=== PATIENT | female | born 1965 | race Two or more races ===

== ENCOUNTER 2016-06-16 22:35 | Emergency (ER) | payer MEDICAID ==
[~2016-06-16] VITALS: Ht 157.5 cm; Wt 71.7 kg
--- NOTE | 2016-06-16 22:40 | NUR ---
PT AMBULATORY TO ER BED 12. C/O SOB X 40 MINS RESIN MIXER. PT APPEARS ANXIOUS. GOWNED AND PLACED ON MONITOR. VSS. DENIES CHEST PAIN. AWAITING MD GUY.
--- NOTE | 2016-06-16 23:02 | NUR ---
DR MORELAND AT BEDSIDE FOR EVAL.
[2016-06-16] MEDS ORDERED: ASPIRIN 81 MG TAB.CHEW ONE (23:03)
--- NOTE | 2016-06-16 23:14 | NUR ---
BLOCK CABLEMAN AT BEDSIDE FOR BLOOD DRAW.
[2016-06-16 23:29] LABS: BASOPHILS % (AUTO) 0.7 % (0.0-2.0); EOSINOPHILS # (AUTO) 0.3 /CMM (0.0-0.7); HEMATOCRIT 37 % (33-45); HEMOGLOBIN 12.1 g/dL (11.5-14.8); LYMPHOCYTES # (AUTO) 2.5 /CMM (0.8-4.8); LYMPHOCYTES % (AUTO) 35.2 % (20.0-44.0); MEAN CORPUSCULAR HEMOGLOBIN 28 PG (26.0-33.0); MEAN CORPUSCULAR HGB CONC 33 g/dl (31.0-36.0); MEAN CORPUSCULAR VOLUME 83 fL (82-100); MONOCYTES # (AUTO) 0.4 /CMM (0.1-1.30); MONOCYTES % (AUTO) 6.2 % (2.0-12.0); NEUTROPHILS # (AUTO) 3.9 /CMM (1.8-8.9); NEUTROPHILS % (AUTO) 53.9 % (43.0-81.0); PLATELET COUNT (AUTO) 259 /CMM (150-450); RDW COEFFICIENT OF VARIATION 14.3 (11.5-15.0); RED BLOOD CELL COUNT(AUTO) 4.41 MIL/uL (4.0-5.2); WHITE BLOOD COUNT (AUTO) 7.2 K/uL (4.3-11.0)
--- NOTE | 2016-06-16 23:29 | NUR ---
RADIOLOGY AT BEDSIDE FOR CHEST XRAY.
[2016-06-16] MEDS ORDERED: ASPIRIN 81 MG TAB.CHEW PO ONE (23:30)
[2016-06-16 23:37] LABS: CALCIUM, SERUM 8.6 mg/dL (8.5-10.1); CARBON DIOXIDE 29 mmol/L (21-32); CHLORIDE 106 mmol/L (98-107); CREATININE 0.8 mg/dL (0.6-1.3); GFR 76 mL/min (>60); GLUCOSE 136 mg/dL (74-106); POTASSIUM 3.7 mmol/L (3.5-5.1); SODIUM SERUM 141 mmol/L (136-145); UREA NITROGEN, BLOOD 12 mg/dL (7-18)
[2016-06-16 23:40] LABS: INR 0.97 (0.87-1.13); PROTHROMBIN TIME 10.4 SECS (9.5-12.7)
[2016-06-16 23:45] LABS: TROPONIN I < 0.017 ng/mL (0.00-0.056)
--- NOTE | 2016-06-17 01:02 | NUR ---
Patient discharged to home in stable condition. Written and verbal after care instructions given. Patient verbalizes understanding of instruction. Pt ambulatory with a steady gait. VSS, NAD noted on DC. Denies complaint on DC.
[2016-06-17 01:03] VITALS: BP 126/83
== END 2016-06-17 01:05 | disposition home or self-care (01) ==
LOC: ER 22:35
DX: F41.9 Anxiety disorder, unspecified (principal); E11.9 Type 2 diabetes mellitus without complications; F32.9 Major depressive disorder, single episode, unspecified; I10 Essential (primary) hypertension; Z90.710 Acquired absence of both cervix and uterus
CPT/HCPCS: 36415; 71010; 80048; 82962; 84484; 85025; 85378; 85610; 93005; 99285; A4606; Z7610

== ENCOUNTER 2020-09-14 11:07 | Emergency (ER) | payer MEDICAID ==
[~2020-09-14] VITALS: Ht 154.9 cm; Wt 79.8 kg
--- NOTE | 2020-09-14 11:24 | NUR ---
PRESENTS W LACERATION TO L PALM AREA WHILE OPENING CANNED GOODS. NOT UTD W/ TETANUS SHOT.
[2020-09-14] MEDS ORDERED: LIDOCAINE HCL/MPF 1% 30 ML VIAL IJ ONE (11:49)
[2020-09-14] MEDS ORDERED: TDAP [DIPH/PERTUSSIS/TET] 0.5 ML VIAL IM ONE ×2 (11:59→12:00)
[2020-09-14 12:07] VITALS: BP 136/75
--- NOTE | 2020-09-14 12:07 | NUR ---
LACERATION REPAIRED. DISCHARGED IN STABLE CONDITION.
== END 2020-09-14 12:09 | disposition home or self-care (01) ==
LOC: ER 11:11
DX: S61.412A Laceration without foreign body of left hand, initial encounter (principal); I10 Essential (primary) hypertension; E11.9 Type 2 diabetes mellitus without complications; F32.9 Major depressive disorder, single episode, unspecified; Z98.890 Other specified postprocedural states; W26.8XXA Contact with other sharp object(s), not elsewhere classified, initial encounter; Y93.89 Activity, other specified; Y92.89 Other specified places as the place of occurrence of the external cause; Y99.8 Other external cause status
CPT/HCPCS: 12001; 90471; 90715; 99283; A6403; J3490

== ENCOUNTER 2025-03-09 17:32 | Emergency (ER) | payer MEDICAID, OTHER ==
[~2025-03-09] VITALS: Ht 152.4 cm; Wt 64.9 kg
[2025-03-09 18:19] VITALS: TEMP 98.6
[2025-03-09] MEDS ORDERED: KETOROLAC TROMETHAMINE 15 MG/ML VIAL ONE (18:47)
[2025-03-09] MEDS: IV NS 0.9% 1,000 ML BAG IV ONE (19:00)
[2025-03-09] MEDS: KETOROLAC TROMETHAMINE 15 MG/ML VIAL IV ONE (19:00)
[2025-03-09 19:12] LABS: PLATELET COUNT (AUTO) 217 K/uL (150-450); RED BLOOD CELL COUNT(AUTO) 4.29 MIL/uL (4.0-5.2); RED CELL DISTRIBUTION WIDTH 13.3 % (11.5-15.0); WHITE BLOOD COUNT (AUTO) 5.4 K/uL (4.3-11.0)
[2025-03-09 19:18] LABS: ERYTHROCYTE SEDIMENTATION RATE 12 MM/HR (0-30)
[2025-03-09 19:29] LABS: CREATINE KINASE, TOTAL 80.0 U/L (26-192)
[2025-03-09 19:30] LABS: ASPARTATE AMINOTRANSFERASE 25.0 U/L (15-37); CALCIUM, SERUM 8.7 mg/dL (8.5-10.1); CREATININE 0.8 mg/dL (0.6-1.3); SODIUM SERUM 145.0 mmol/L (136-145); TOTAL PROTEIN, SERUM 7.8 g/dL (6.4-8.2); UREA NITROGEN, BLOOD 15.0 mg/dL (7-18)
[2025-03-09] MEDS ORDERED: Magnesium 1GM/D5W 100ML PREMIX 100 ML IV ONE (20:14)
[2025-03-09] MEDS: Magnesium 1GM/D5W 100ML PREMIX PIGGYBACK IV ONE (20:25)
[2025-03-09] MEDS: Magnesium 1 GM/2 ML VIAL IV ONE (20:30)
[2025-03-09 20:39] LABS: APPEARANCE,URINE CLEAR (CLEAR); BLOOD, URINE TRACE-INTA Ery/uL (NEGATIVE); LEUKOCYTE ESTERASE ,URINE TRACE (NEGATIVE); NITRITE, URINE NEGATIVE (NEGATIVE); UGLUCOSE NEGATIVE (NEGATIVE)
[2025-03-09 21:26] LABS: ADD URINE CULTURE YES; SQUAMOUS EPITHELIAL CELL,UR Few /HPF (None Seen)
[2025-03-09] MEDS ORDERED: CEPH-570 PO (21:38)
[2025-03-09] MEDS ORDERED: OXYC-128 PO (21:38)
[2025-03-09 21:49] VITALS: BP 115/75; O2SAT 97
== END 2025-03-09 21:48 | disposition home or self-care (01) ==
LOC: ER 17:53
DX: E11.42 Type 2 diabetes mellitus with diabetic polyneuropathy (principal); N39.0 Urinary tract infection, site not specified; I10 Essential (primary) hypertension; E78.5 Hyperlipidemia, unspecified; Z79.84 Long term (current) use of oral hypoglycemic drugs; Z90.710 Acquired absence of both cervix and uterus
CPT/HCPCS: 99285; 96374; 76856; 96361; 96375; 85025; 82550; 87086; 85652; 87186; 81001; 36415; 80053; 86140; J1885; J7030; J3475; A4223